=== PATIENT | female | born 1965 | race Caucasian/White ===

== ENCOUNTER → 2022-04-11 | Day surgery (SDC) | payer SELFPAY ==
[~2022-04-11] MED LIST: ATORVASTATIN CA10 MG PO; CYCLOPENTOLATE HCL 1% OPTH SOLN 2ML BTL ONE; MEGA RED PO; OR PHACO EYE KIT ONE; PREOP PHACO EYE KIT ONE; PROAIR HFA INH8.5 GM INH; SERTRALINE HCL50 MG PO; SINGULAIR10 MG PO; TRELEGY ELLIPT1 EACH INH; VITAMIN D3250 MCG PO
[2022-04-11 13:15] VITALS: BP 124/78
== END | disposition home or self-care (01) ==
LOC: OR 09:12
PROVIDERS: ATTEND Ophthalmology
DX: H52.4 Presbyopia (principal); H52.201 Unspecified astigmatism, right eye; J44.9 Chronic obstructive pulmonary disease, unspecified; E78.5 Hyperlipidemia, unspecified; Z20.822 Contact with and (suspected) exposure to COVID-19; Z79.899 Other long term (current) drug therapy; Z87.891 Personal history of nicotine dependence
CPT/HCPCS: 0223U; 36415; 66984; V2788

== ENCOUNTER → 2022-04-25 | Day surgery (SDC) | payer SELFPAY ==
[~2022-04-25] MED LIST changes: +FENTANYL CITRATE/PF 100MCG/2 ML INJ ONE; +MIDAZOLAM HCL 2 MG/2 ML VIAL ONE; +MOXIFLOXACIN HCL(OPTH) 3 ML BTL ONE; +PHENYLEPHRINE HCL 10% 5 ML OPTH SOLN ONE; +TROPICAMIDE 1% OPTH SOLN 15 ML BTL OP NR
[2022-04-25 13:40] VITALS: BP 123/78
== END | disposition home or self-care (01) ==
LOC: OR 09:32
PROVIDERS: ATTEND Ophthalmology
DX: H52.4 Presbyopia (principal); J44.9 Chronic obstructive pulmonary disease, unspecified; E78.5 Hyperlipidemia, unspecified; Z20.822 Contact with and (suspected) exposure to COVID-19; Z79.899 Other long term (current) drug therapy
CPT/HCPCS: 0223U; 36415; 66984; J2250; J3010; V2632